=== PATIENT | female | born 1985 | race Asian ===

== ENCOUNTER → 2016-05-03 | Outpatient (CLI) | payer OTHER ==
[~2016-05-03] MED LIST: IBU800 M1 PO; PERCOCET 325 MG1 TA2 PO; PRENATAL VITAMI1 TA3 PO; SYNTHROID 0.0.025 MG PO; SYNTHROID0.088 MG/T PO; ZOFRAN ODT8 MG PO
== END ==
LOC: SUN.DIA 11:09
DX: O24.419 Gestational diabetes mellitus in pregnancy, unspecified control (principal); Z3A.30 30 weeks gestation of pregnancy; Z71.3 Dietary counseling and surveillance
CPT/HCPCS: G0108

== ENCOUNTER → 2016-05-31 | Outpatient (CLI) | payer OTHER | LOC: SUN.DIA 05-24 08:39 | DX: O24.419 Gestational diabetes mellitus in pregnancy, unspecified control (principal); Z3A.34 34 weeks gestation of pregnancy; Z71.3 Dietary counseling and surveillance | CPT/HCPCS: G0108 ==

== ENCOUNTER 2016-07-19 11:47 | Outpatient (CLI) | payer OTHER ==
[~2016-07-19] VITALS: Ht 157.5 cm; Wt 70.5 kg
[~2016-07-19 11:47] MED LIST changes: -IBU800 M1 PO; -PERCOCET 325 MG1 TA2 PO; -PRENATAL VITAMI1 TA3 PO; -SYNTHROID0.088 MG/T PO
[2016-07-19 11:56] VITALS: BP 110/69; PULSE 62; TEMP 98.1
[2016-07-19] MEDS ORDERED: SYNTHROID0.088 MG/T PO (12:08)
[2016-07-19] MEDS ORDERED: PRENATAL VITAMI1 TA3 PO (12:08)
[2016-07-19 13:15] VITALS: BP 98/61; PULSE 65
== END 2016-07-19 13:25 | disposition home or self-care (01) ==
LOC: LDRO 11:47
DX: O62.2 Other uterine inertia (principal); Z3A.41 41 weeks gestation of pregnancy

== ENCOUNTER 2016-07-21 05:35 | Inpatient (IN) | payer OTHER ==
[2016-07-21] VITALS (19 sets, daily range): BP systolic 89–113; BP diastolic 55–88; PULSE 51–73; TEMP 98.1–98.4
[~2016-07-21] VITALS: Ht 157.5 cm; Wt 70.0 kg
[~2016-07-21 05:35] MED LIST changes: +PRENATAL VITAMI1 TA3 PO; +SYNTHROID0.088 MG/T PO
[2016-07-21 06:46] LABS: HEMOGLOBIN 12.7 g/dl (12.5-16.0); MEAN CELL VOLUME 87 fl (80.0-100.0); MEAN CORPUSCULAR HEMOGLOBIN 30 pg (27.0-31.0); MEAN CORPUSCULAR HGB CONC 34 g/dl (33.0-37.0); MEAN PLATELET VOLUME 11.8 fl (7.4-10.4); PLATELET COUNT 156 K/mm3 (130-400); RED BLOOD COUNT 4.24 M/mm3 (4.10-5.30); REDCELL DISTRIBUTION WIDTH-CV 13.3 % (11.5-14.5); WHITE BLOOD COUNT 9.4 K/mm3 (4.8-10.8)
[2016-07-21 06:54] LABS: ADD PATHOLOGY DIFF REVIEW NO
[2016-07-21 07:38] LABS: BAND 4 % (0-10); NEUTROPHILS 67 % (42.0-75.2); TOTAL CELLS COUNTED 100
[2016-07-21 07:39] LABS: PLATELET ESTIMATE NORMAL (NORMAL)
[2016-07-22 00:45] VITALS: BP 106/59; PULSE 69; TEMP 98
[2016-07-22 08:00] VITALS: BP 90/46; PULSE 74; TEMP 98.1
[2016-07-22 11:48] VITALS: BP 87/40; PULSE 95; TEMP 98.2
[2016-07-22 16:00] VITALS: BP 99/51; PULSE 69; TEMP 97.5
[2016-07-22 23:30] VITALS: BP 93/50; PULSE 67; TEMP 98.4
[2016-07-23 07:40] VITALS: BP 96/62; PULSE 74; TEMP 97.7
[2016-07-23 15:15] VITALS: BP 100/58; PULSE 68; TEMP 97.5
[2016-07-23 20:57] VITALS: BP 106/57; PULSE 66; TEMP 98.6
[2016-07-24 07:00] VITALS: BP 102/55; PULSE 61; TEMP 97.9
[2016-07-24] MEDS ORDERED: IBU800 M1 PO (08:52)
[2016-07-24] MEDS ORDERED: PERCOCET 325 MG1 TA2 PO (08:53)
== END 2016-07-24 13:50 | disposition home or self-care (01) | DRG 766 ==
LOC: OB 05:35
PROVIDERS: Obstetrics & Gynecology
PROC: 10D00Z1 Extraction of Products of Conception, Low, Open Approach (ICD-10-PCS; principal; 2016-07-21)
DX: O48.0 Post-term pregnancy (principal); O99.284 Endocrine, nutritional and metabolic diseases complicating childbirth; E03.9 Hypothyroidism, unspecified; O24.420 Gestational diabetes mellitus in childbirth, diet controlled; O99.824 Streptococcus B carrier state complicating childbirth; Z3A.41 41 weeks gestation of pregnancy; Z37.0 Single live birth
CPT/HCPCS: J0690; J1885; J2210; J2270; J2370; J2405; J2590; J7120

== ENCOUNTER → 2016-07-29 | Outpatient (CLI) | payer OTHER ==
[~2016-07-29] MED LIST changes: +IBU800 M1 PO; +PERCOCET 325 MG1 TA2 PO
== END ==
LOC: OLC 13:00
DX: Z39.1 Encounter for care and examination of lactating mother (principal); Z71.89 Other specified counseling

== ENCOUNTER → 2016-08-04 | Outpatient (CLI) | payer OTHER | LOC: OLC 13:35 | DX: Z39.1 Encounter for care and examination of lactating mother (principal); Z71.89 Other specified counseling ==

== ENCOUNTER → 2020-07-14 | Outpatient (CLI) | payer OTHER | LOC: COL.RAD 07:00 | DX: R51.9 Headache, unspecified (principal); R42 Dizziness and giddiness; R70.0 Elevated erythrocyte sedimentation rate | CPT/HCPCS: A9585 ==